=== PATIENT | female | born 1975 | race Caucasian/White ===

== ENCOUNTER 2018-08-07 06:12 | Inpatient (IN) ==
[2018-07-31 10:57] LABS: Albumin 4.2 G/DL (3.4-5.0); Bilirubin,Total 0.5 MG/DL (0.2-1.0); Osmolality,Calculated 277.5 MOS/KG (273-304); Total Protein 7.9 G/DL (6.4-8.3)
[2018-07-31 11:11] LABS: Apearance,Urine CLEAR (Clear); Bilirubin,Urine Negative (Negative); Blood, Urine Negative (Negative); Glucose,Urine (UA) Negative (Negative); Ketones,Urine Negative (Negative); Mucus,Urine Occasional /LPF (Occasional); Nitrite,Urine Negative (Negative); Protein,Urine Negative; RBC,Urine 1 /HPF (0-4); Squamous Epithelial Cell,Urine Moderate /HPF (0-10); Urine Color Yellow (Yellow); Urine Specific Gravity 1.013 (1.001-1.035); Urine Urobilinogen < 2.0 EU/DL (0.2-1.0); WBC,Urine <1 /HPF (0-6)
[~2018-08-07 06:12] MED LIST: AMPICILLIN/SULBACTAM 3,000 MG VIAL ONE
[2018-08-07] MEDS ORDERED: SCOPOLAMINE 1.5 MG PATCH TRANSDERM ONE ×2 (06:36→06:50)
[2018-08-07] MEDS ORDERED: FAMOTIDINE 20 MG TABLET PO ONE (06:36)
[2018-08-07] MEDS: LACTATED RINGERS 1,000 ML IV SCH ×2 (06:42→08:46)
[2018-08-07] MEDS ORDERED: METHYLENE BLUE 10 ML VIAL IV ONE (06:48)
[2018-08-07] MEDS ORDERED: FAMOTIDINE 20 MG TABLET ONE (06:50)
[2018-08-07] MEDS ORDERED: DIAZEPAM 5 MG TABLET PO ONE (06:52)
[2018-08-07] MEDS ORDERED: AMPICILLIN/SULBACTAM 3,000 MG in SODIUM CHLORIDE 0.9% 100 ML IV ONE (07:00)
[2018-08-07] MEDS ORDERED: PROMETHAZINE 25 MG/1 ML VIAL ONE (07:01)
[2018-08-07] MEDS ORDERED: DIAZEPAM 5 MG TABLET PO STA (07:43)
[2018-08-07] MEDS ORDERED: KETOROLAC 30 MG/1 ML VIAL IV STA (07:43)
[2018-08-07] MEDS ORDERED: HYDROmorphone 2 MG/1 ML VIAL ONE (09:53)
[2018-08-07] MEDS ORDERED: BUPIVACAINE 0.5% 50 ML VIAL ONE (10:02)
[2018-08-07] MEDS ORDERED: DEXAMETHASONE 4 MG/1 ML VIAL ONE ×2 (10:03→10:46)
[2018-08-07] MEDS ORDERED: EPINEPHrine 1 MG/ML VIAL ONE (10:03)
[2018-08-07] MEDS ORDERED: ONDANSETRON 4 MG/2 ML VIAL IV PRN (10:10)
[2018-08-07] MEDS ORDERED: MAGNESIUM HYDROXIDE SUSP 30 ML UDCUP PO PRN (10:10)
[2018-08-07] MEDS ORDERED: BENZOCAINE/MENTHOL LOZENGE 18/BOX PO PRN (10:10)
[2018-08-07] MEDS ORDERED: BISACODYL 10 MG SUPP RECTAL PRN (10:10)
[2018-08-07] MEDS ORDERED: DOCUSATE SODIUM 100 MG CAPSULE PO PRN (10:10)
[2018-08-07] MEDS ORDERED: ACETAMINOPHEN 325 MG TABLET PO PRN (10:10)
[2018-08-07] MEDS ORDERED: LACTATED RINGERS 1,000 ML IV SCH (10:30)
[2018-08-07 10:43] LABS: Apearance,Urine CLEAR (Clear); Bacteria,Urine Occasional /HPF (Few); Bilirubin,Urine Negative (Negative); Blood, Urine Small mg/dL (Negative); Glucose,Urine (UA) Negative (Negative); Ketones,Urine Negative (Negative); Mucus,Urine Occasional /LPF (Occasional); Nitrite,Urine Negative (Negative); Protein,Urine Negative; RBC,Urine <1 /HPF (0-4); Squamous Epithelial Cell,Urine Occasional /HPF (0-10); Urine Color Straw (Yellow); Urine Specific Gravity 1.013 (1.001-1.035); Urine Urobilinogen < 2.0 EU/DL (0.2-1.0)
[2018-08-07] MEDS ORDERED: MIDAZOLAM 2 MG/2 ML VIAL ONE (10:46)
[2018-08-07] MEDS ORDERED: SEVOFLURANE 1 UNIT/15 MINUTE INH ONE (10:46)
[2018-08-07] MEDS ORDERED: PROPOFOL 200 MG/20 ML VIAL IV ONE (10:46)
[2018-08-07] MEDS ORDERED: fentaNYL 100 MCG/2 ML VIAL ONE (10:46)
[2018-08-07] MEDS ORDERED: ACETAMINOPHEN 1,000 MG/100 ML VIAL IV ONE (10:46)
[2018-08-07] MEDS ORDERED: ONDANSETRON 4 MG/2 ML VIAL ONE (10:46)
[2018-08-07] MEDS ORDERED: ROCURONIUM 100 MG/10 ML VIAL IV ONE (10:47)
[2018-08-07] MEDS ORDERED: LACTATED RINGERS 1,000 ML IV ONE (10:47)
[2018-08-07] MEDS ORDERED: HYDROmorphone 2 MG/1 ML VIAL IV PRN ×2 (11:01→11:58)
[2018-08-07] MEDS ORDERED: SODIUM CHLORIDE 0.9% 1,000 ML IV SCH (12:50)
[2018-08-07 13:00] LABS: Basophils # 0.1 10*3/uL (0.0-0.2); Basophils % 0.5 % (0.0-0.8); Eosinophils % 0.1 % (0.00-10.9); Hematocrit 39.1 VOL% (35.7-47.0); Hemoglobin 12.5 GM/DL (12.0-16.0); Immature Granulocytes % 0.5 %; Immature Granulocytes Absolute 0.05 #; Lymphocytes % 9.4 % (21.3-54.2); Mean Corpuscular Volume 96.1 FL (87-102); Monocytes % 0.9 % (1.7-12.7); Neutrophils % 88.6 % (38.7-73.9); Platelet Count 233 T/CUMM (130-400); Red Blood Count 4.07 MC/CUMM (3.8-5.5); Red Cell Distribution Width 12.1 % (9.3-17.3); White Blood Count 10.3 T/CUMM (4-12)
[2018-08-07] MEDS ORDERED: SODIUM CHLORIDE 0.9% 50 ML IV ONE (16:25)
[2018-08-07] MEDS: ceFAZolin 1,000 MG in SYRINGE 1 EACH IV SCH ×2 (16:30→23:37)
[2018-08-07] MEDS: IBUPROFEN 800 MG TABLET PO PRN (19:23)
[2018-08-08 04:59] LABS: Basophils % 0.3 % (0.0-0.8); Eosinophils % 0.1 % (0.00-10.9); Hematocrit 34.1 VOL% (35.7-47.0); Hemoglobin 11.1 GM/DL (12.0-16.0); Immature Granulocytes % 0.7 %; Immature Granulocytes Absolute 0.09 #; Lymphocytes # 2.1 10*3/uL (1.4-4.0); Lymphocytes % 15.2 % (21.3-54.2); Mean Corpuscular HGB Conc 32.6 GM/DL (32-36); Mean Corpuscular Volume 94.7 FL (87-102); Mean Platelet Volume 9.2 FL (9.6-12.0); Monocytes % 6.4 % (1.7-12.7); Neutrophils % 77.3 % (38.7-73.9); Platelet Count 224 T/CUMM (130-400); Red Cell Distribution Width 12.1 % (9.3-17.3); White Blood Count 13.6 T/CUMM (4-12)
[2018-08-08 07:48] VITALS: BP 107/65
[2018-08-08] MEDS: IBUPROFEN 800 MG TABLET PO PRN (12:00)
[2018-08-08] MEDS ORDERED: SIMETHICONE CHEW 80 MG TABLET PO PRN (12:19)
== END 2018-08-08 13:00 | disposition home or self-care (01) | DRG 743 ==
LOC: N.SDSINP 06:12 → N.OB 11:37
PROVIDERS: ADMIT Obstetrics & Gynecology; ATTEND Obstetrics & Gynecology